=== PATIENT | female | born 1990 | race Caucasian/White ===

== ENCOUNTER 2017-09-26 22:20 | Emergency (ER) | payer OTHER, MEDICAID ==
[~2017-09-26] VITALS: Ht 162.6 cm; Wt 55.0 kg
[2017-09-26 23:23] LABS: MICROSCOPIC AUTO
[2017-09-26 23:30] LABS: CULTURE INDICATED? YES
[2017-09-26 23:31] LABS: HCG UR SG 1.028 (1.003-1.030)
[2017-09-26 23:35] LABS: MEAN CORPUSCULAR HEMOGLOBIN 30.2 pg (27.0-34.8); MEAN CORPUSCULAR HGB CONC 33.9 g/dL (32.4-35.8); MEAN PLATELET VOLUME 8.5 fL (7.4-10.4); PLATELET COUNT 193 x10^3/uL (130-400); RED BLOOD COUNT 4.65 x10^6/uL (3.82-5.3); RED CELL DISTRIBUTION WIDTH 13.9 % (9.6-15.2)
[2017-09-26 23:47] LABS: ALBUMIN 3.4 g/dL (3.4-5.0); ANION GAP 6 mmol/L (5-15); CALCIUM 8.6 mg/dL (8.5-10.1); CHLORIDE 103 mmol/L (98-107); CREATININE 1.13 mg/dL (0.55-1.02)
[2017-09-27 00:02] LABS: MD YES
[2017-09-27 00:04] LABS: <PLATELET ESTIMATE> ADEQUATE; <RBC MORPHOLOGY> NORMAL; BAND#(MANUAL) 0.69 x10^3/uL; BANDS%(MANUAL) 4 % (0-7); LYMPH#(MANUAL) 2.08 x10^3/uL (1-3.4); LYMPHS% (MANUAL) 12 % (22-44); MONOS#(MANUAL) 1.04 x10^3/uL (0.3-2.7); MONOS% (MANUAL) 6 % (2-9); SEG#(MANUAL) 13.49 x10^3/uL (1.8-6.8); SEGS% (MANUAL) 78 % (42-75)
[2017-09-27 00:05] LABS: <PLT MORPHOLOGY> NORMAL PLT MORPH
[2017-09-27 00:25] VITALS: BP 102/66
[2017-09-27] MEDS ORDERED: KETOROLAC 30 MG/1 ML ONE (00:38)
[2017-09-27] MEDS ORDERED: CEFTRIAXONE PMX 1GM/50ML 50 ML ONE (00:39)
[2017-09-27] MEDS ORDERED: KETOROLAC 30 MG/1 ML IVPush ONE (01:00)
[2017-09-27] MEDS ORDERED: CEFTRIAXONE PMX 1GM/50ML 50 ML IV ONE (01:00)
== END 2017-09-27 01:53 | disposition home or self-care (01) ==
LOC: ED 22:32
DX: N10 Acute pyelonephritis (principal); N30.91 Cystitis, unspecified with hematuria
CPT/HCPCS: 36415; 80048; 81001; 81025; 82040; 85025; 87086; 96365; 96375; 99284; J0696; J1885